=== PATIENT | female | born 2000 | race African-American/Black ===

== ENCOUNTER 2022-10-29 19:17 | Emergency (ER) | payer MEDICAID, MEDICARE ==
[~2022-10-29] VITALS: Ht 162.6 cm; Wt 50.0 kg
[2022-10-29 19:44] VITALS: BP 123/77; RESP 12; TEMP 98.7; O2SAT 99
[2022-10-29 19:48] VITALS: PULSE 66
[2022-10-29] MEDS ORDERED: VALA100044 PO (19:59)
[2022-10-29] MEDS ORDERED: NAPR-681 MT (19:59)
== END 2022-10-29 20:30 | disposition home or self-care (01) ==
LOC: ER 19:17
DX: B00.1 Herpesviral vesicular dermatitis (principal)
CPT/HCPCS: 99281

== ENCOUNTER 2024-02-29 09:59 | Emergency (ER) | payer MEDICAID, MEDICARE ==
[~2024-02-29] VITALS: Ht 163.8 cm; Wt 53.5 kg
[~2024-02-29 09:59] MED LIST: NAPR-681 MT; VALA100044 PO
[2024-02-29 10:03] VITALS: PULSE 84; O2SAT 98
[2024-02-29 10:17] VITALS: BP 114/78; RESP 16; TEMP 98.2; O2SAT 99
[2024-02-29] MEDS ORDERED: AMOX1TAB16 MT (14:13)
[2024-02-29] MEDS ORDERED: TETANUS, DIPHTHERIA, PERTUSSIS VAC/PF 0.5ML (>10YR OLD) IM ONE ×2 (14:15→16:00)
[2024-02-29] MEDS ORDERED: AMOXICILLIN/POTASSIUM CLAVULANATE 875/125MG TAB PO ONE (14:15)
[2024-02-29] MEDS ORDERED: AMOXICILLIN/POTASSIUM CLAVULANATE 875/125MG TAB PO NR (16:00)
[2024-02-29] MEDS ORDERED: LIDOCAINE HCL/PF 1% 10 MG/ML 5ML VIAL INFIL ONE (16:45)
== END 2024-02-29 17:09 | disposition home or self-care (01) ==
LOC: ER 10:17
DX: S00.81XA Abrasion of other part of head, initial encounter (principal); S91.331A Puncture wound without foreign body, right foot, initial encounter; W54.0XXA Bitten by dog, initial encounter; Y93.89 Activity, other specified; Y92.89 Other specified places as the place of occurrence of the external cause; Y99.8 Other external cause status
CPT/HCPCS: 99283; 90715; 90471; J3490